=== PATIENT | female | born 1950 | race Caucasian/White ===

== ENCOUNTER 2018-06-05 20:14 | Emergency (ER) | payer MEDICARE ==
[~2018-06-05] VITALS: Ht 152.4 cm; Wt 61.2 kg
[2018-06-05] MEDS ORDERED: MELO7.5T12 PO (20:49)
[2018-06-05] MEDS ORDERED: SIMV10TA6 PO (20:49)
--- NOTE | 2018-06-05 21:03 | NUR ---
PT PRESENTS TO ER W/ C/O L INDEX FINGER LACERATION. PER PT, SHE WAS CUTTING FOOD AT HOME WHEN THE INJURY OCCURED, 1.5 HRS [employer].
--- NOTE | 2018-06-05 21:36 | NUR ---
DR AIYANA BRANCH MD AT BEDSIDE FOR MSE.
[2018-06-05] MEDS ORDERED: LIDOCAINE HCL 1% 20 ML VIAL IJ ONE (21:45)
[2018-06-05] MEDS ORDERED: TDAP DIPH,PERTUSS,TET VAC/PF 0.5 ML DISP.SYRIN IM ONE ×2 (21:45→22:28)
[2018-06-05] MEDS ORDERED: CEPHALEXIN MONOHYDRATE 500 MG CAPSULE PO ONE (22:30)
[2018-06-05] MEDS ORDERED: CEPHALEXIN MONOHYDRATE 500 MG CAPSULE ONE (22:36)
--- NOTE | 2018-06-05 22:39 | NUR ---
Patient discharged to home in stable conditon. Written and verbal after care instructions given. Patient verbalizes understanding of instructions. Pt ambulated from ER w/ steady gait. No distress noted at this time. Pt took all personal belongings.
[2018-06-05 22:41] VITALS: BP 125/72
== END 2018-06-05 22:42 | disposition home or self-care (01) ==
LOC: ER 20:16
DX: S61.211A Laceration without foreign body of left index finger without damage to nail, initial encounter (principal); E78.5 Hyperlipidemia, unspecified; Z79.899 Other long term (current) drug therapy; W26.0XXA Contact with knife, initial encounter; Y93.89 Activity, other specified; Y92.89 Other specified places as the place of occurrence of the external cause; Y99.8 Other external cause status
CPT/HCPCS: 12002; 90471; 90715; 99283; A4217 ×2; A4663; J3490